=== PATIENT | male | born 2000 | race Caucasian/White ===

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

== ENCOUNTER 2022-11-23 14:55 | Emergency (ER) | payer MEDICAID, SELFPAY ==
[2022-11-23 15:03] VITALS: BP 117/64; PULSE 75; RESP 20; TEMP 37.4; O2SAT 99
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
[2022-11-23 16:02] VITALS: BP 118/80; PULSE 80; RESP 18; TEMP 36.8; O2SAT 99
== END 2022-11-23 16:06 | disposition home or self-care (01) ==
PROVIDERS: Emergency Provider Student in an Organized Health Care Education/Training Program; PCP Nurse Practitioner Family
DX: S61.211A Laceration without foreign body of left index finger without damage to nail, initial encounter (principal); W26.8XXA Contact with other sharp object(s), not elsewhere classified, initial encounter
CPT/HCPCS: 12001

== ENCOUNTER 2024-10-02 10:44 | Outpatient (CLI) | payer MEDICAID, SELFPAY ==
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
== END 2024-10-02 11:04 ==
LOC: DI 10:44
PROVIDERS: PCP Nurse Practitioner Family; Visit Provider Nurse Practitioner Family
DX: M54.9 Dorsalgia, unspecified (principal); M41.24 Other idiopathic scoliosis, thoracic region
CPT/HCPCS: 72072

== ENCOUNTER 2024-10-15 07:21 | Emergency (ER) | payer SELFPAY ==
--- NOTE | 2024-10-15 07:15 | DI.RAD_ITS ---
Exam(s) XR HEEL LT OS CALCIS EXAM: XR HEEL LT OS CALCIS CLINICAL HISTORY: Eval foreign body, stepped on nail. TECHNIQUE: 2D digital imaging was performed. COMPARISON: No exams were available for comparison FINDINGS: Two views-lateral and Griffin axial There is no evidence of calcaneal fracture. There is no radiopaque foreign body evident. No gas in the soft tissues. There is no evidence of osteomyelitis. No tarsal coalition. IMPRESSION: No significant radiographic findings. DATA REPOSITORY: RADIATION DOSE DELIVERED:
[2024-10-15 07:24] VITALS: BP 132/79; PULSE 114; RESP 18; TEMP 37.2; O2SAT 100
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
[2024-10-15] MEDS: Ibuprofen 600 MG TAB PO (07:46)
[2024-10-15] MEDS: Acetaminophen 500 MG TAB 1000 MG PO (07:46)
[2024-10-15 08:26] VITALS: BP 135/87; PULSE 89; RESP 16; O2SAT 97
== END 2024-10-15 08:28 | disposition home or self-care (01) ==
PROVIDERS: Emergency Provider Emergency Medicine; PCP Nurse Practitioner Family
DX: S91.332A Puncture wound without foreign body, left foot, initial encounter (principal); W22.8XXA Striking against or struck by other objects, initial encounter; Y93.01 Activity, walking, marching and hiking; Y92.62 Dock or shipyard as the place of occurrence of the external cause; F17.210 Nicotine dependence, cigarettes, uncomplicated; F17.290 Nicotine dependence, other tobacco product, uncomplicated
CPT/HCPCS: 99283; 73650